=== PATIENT | male | born 1935 | race Caucasian/White ===

== ENCOUNTER 2022-07-26 15:43 | Inpatient (IN) | payer MEDICARE ==
[2022-07-26] MEDS ORDERED: levETIRAcetam 500 MG/5 ML VIAL ONE (15:54)
[2022-07-26 16:11] LABS: #Basophils 0.1 thou/uL (0.0-0.2); #Eosinphils 0.5 thou/uL (0.0-0.7); #Lymphocytes 2.4 thou/uL (1.20-3.40); #Neutrophils 7.5 thou/uL (1.40-6.50); %Basophils 0.5 % (0.0-1.0); %Eosinophils 4.3 % (0.0-10.0); %Lymphocytes 21.2 % (21.0-51.0); %Monocytes 8.7 % (0.0-10.0); %Neutrophils 65.2 % (42.0-75.0); Hemoglobin 14.2 g/dL (14.0-18.0); Mean Corpuscular HGB CONC 33.1 g/dL (32.0-36.0); Mean Corpuscular Hemoglobin 33.7 pg (27.0-31.0); Mean Platelet Volume 7.9 fL (7.4-10.4); Platelet Count 240 10x3/uL (130-400); Red Blood Cell (RBC) Count 4.23 mill/uL (4.70-6.10); White Blood Cell (WBC) Count 11.5 10x3/uL (4.8-10.8)
[2022-07-26 16:31] LABS: ALT (SGPT) 25 U/L (8-55); AST (SGOT) 21 U/L (5-34); Albumin 4.1 g/dL (3.4-4.8); Alkaline Phosphatase 89 U/L (40-110); Anion Gap 15 mmol/L (10-20); BUN (Urea Nitrogen) 52 mg/dL (8.4-25.7); Calc. Creatinine Clearance 0 mL/min (70-130); Calcium 8.9 mg/dL (7.8-10.44); Carbon Dioxide 24 mmol/L (23-31); Chloride 104 mmol/L (98-107); Estimated GFR 27; Globulin 3.3 g/dL (2.4-3.5); Glucose 103 mg/dL (83-110); Potassium 3.2 mmol/L (3.5-5.1); Protein, Total 7.4 g/dL (5.8-8.1); Sodium 140 mmol/L (136-145)
[2022-07-26 17:22] LABS: Bacteria/HPF 1+ HPF (None Seen); Bilirubin Negative (Negative); Blood, Urine 2+ (Negative); Clarity Clear (Clear); Glucose, Urine (Dipstick) Normal (Negative); Ketone, Urine Negative (Negative); Leukocyte 250 Leu/uL (Negative); Nitrite Negative (Negative); Protein, Urine (Dipstick) 20 mg/dL (Neg-Trace); Specific Gravity, Urine 1.016 (1.002-1.036); Squamous Epithelial 0-3 HPF (0-3); Urobilinogen Normal mg/dL (Less than 2); WBC/HPF 21-50 HPF (0-3)
[2022-07-26] MEDS ORDERED: Aspirin 325 MG TAB ONE (17:25)
[2022-07-26] MEDS ORDERED: Potassium Chloride 20 MEQ TAB ONE (17:29)
[2022-07-26] MEDS ORDERED: Acetaminophen 325 MG TAB PO PRN (17:58)
[2022-07-26] MEDS ORDERED: Ondansetron ODT 4 MG TAB PO PRN (17:58)
[2022-07-26] MEDS ORDERED: Ondansetron PF 4 MG/2 ML Vial IVP PRN (17:58)
[2022-07-26 19:59] VITALS: BMI 22.4
[2022-07-26] MEDS: Atorvastatin Calcium 40 MG TAB PO SCH (22:54)
[2022-07-27 05:00] LABS: #Basophils 0.1 thou/uL (0.0-0.2); #Eosinphils 0.6 thou/uL (0.0-0.7); #Lymphocytes 2.7 thou/uL (1.20-3.40); #Monocytes 0.8 thou/uL (0.11-0.59); #Neutrophils 4.3 thou/uL (1.40-6.50); %Basophils 0.7 % (0.0-1.0); %Eosinophils 7.6 % (0.0-10.0); %Lymphocytes 31.6 % (21.0-51.0); %Monocytes 9.6 % (0.0-10.0); %Neutrophils 50.6 % (42.0-75.0); Mean Corpuscular HGB CONC 32.7 g/dL (32.0-36.0); Mean Corpuscular Hemoglobin 33.2 pg (27.0-31.0); Mean Platelet Volume 7.9 fL (7.4-10.4); Platelet Count 189 10x3/uL (130-400); Red Blood Cell (RBC) Count 3.61 mill/uL (4.70-6.10); White Blood Cell (WBC) Count 8.4 10x3/uL (4.8-10.8)
[2022-07-27 05:37] LABS: Anion Gap 13 mmol/L (10-20); BUN (Urea Nitrogen) 54 mg/dL (8.4-25.7); Calc. Creatinine Clearance 27 mL/min (70-130); Calcium 8.4 mg/dL (7.8-10.44); Carbon Dioxide 22 mmol/L (23-31); Cardiac Risk 2.9 (Less than 4.5); Chloride 106 mmol/L (98-107); Cholesterol 78 mg/dl (< 200 Desired); Estimated GFR 27; Glucose 98 mg/dL (83-110); HDL Cholesterol 27 mg/dL (>60 Neg Risk); LDL Cholesterol, Calculated 38 mg/dL; Sodium 138 mmol/L (136-145); Triglycerides 63 mg/dL (Less than 150)
[2022-07-27] MEDS ORDERED: Polyethylene Glycol 3350 17 GM Packet PO PRN (09:54)
[2022-07-27] MEDS ORDERED: Bisacodyl 10 MG SUPP PR SCH (10:00)
[2022-07-27] MEDS ORDERED: Tamsulosin HCl 0.4 MG CAP PO SCH (11:00)
[2022-07-27] MEDS ORDERED: levETIRAcetam 500 MG TAB PO SCH ×2 (11:00→21:00)
[2022-07-27] MEDS ORDERED: Venlafaxine 75 MG TAB PO SCH (11:00)
[2022-07-27] MEDS: Enoxaparin Sodium 30 MG/0.3 ML SYRINGE SC SCH (11:15)
[2022-07-27] MEDS: Aspirin 81 mg Enteric Coated Tablet PO SCH (11:16)
[2022-07-27] MEDS ORDERED: Potassium Chloride 20 MEQ TAB PO SCH (12:15)
[2022-07-27] MEDS ORDERED: cefTRIAXone\\ROCEPHIN 1 GM in Sodium Chloride 0.9% 100 ML IVPB SCH (16:00)
[2022-07-27] MEDS: Atorvastatin Calcium 40 MG TAB PO SCH (21:15)
[2022-07-27] MEDS: levETIRAcetam 500 MG TAB PO SCH (21:16)
[2022-07-28 05:38] LABS: #Basophils 0.1 thou/uL (0.0-0.2); #Eosinphils 0.5 thou/uL (0.0-0.7); #Lymphocytes 2.1 thou/uL (1.20-3.40); #Monocytes 0.7 thou/uL (0.11-0.59); #Neutrophils 3.9 thou/uL (1.40-6.50); %Basophils 0.9 % (0.0-1.0); %Eosinophils 7.3 % (0.0-10.0); %Lymphocytes 29.4 % (21.0-51.0); %Monocytes 9.2 % (0.0-10.0); %Neutrophils 53.3 % (42.0-75.0); Hemoglobin 11.9 g/dL (14.0-18.0); Mean Corpuscular HGB CONC 32.6 g/dL (32.0-36.0); Mean Corpuscular Hemoglobin 33.5 pg (27.0-31.0); Mean Platelet Volume 7.9 fL (7.4-10.4); Platelet Count 174 10x3/uL (130-400); RBC Distribution Width 10.9 % (11.5-14.5); Red Blood Cell (RBC) Count 3.57 mill/uL (4.70-6.10); White Blood Cell (WBC) Count 7.3 10x3/uL (4.8-10.8)
[2022-07-28 05:53] LABS: Anion Gap 12 mmol/L (10-20); BUN (Urea Nitrogen) 51 mg/dL (8.4-25.7); Calc. Creatinine Clearance 32 mL/min (70-130); Calcium 8.4 mg/dL (7.8-10.44); Carbon Dioxide 24 mmol/L (23-31); Chloride 107 mmol/L (98-107); Estimated GFR 33; Glucose 96 mg/dL (83-110); Potassium 3.6 mmol/L (3.5-5.1); Sodium 139 mmol/L (136-145)
[2022-07-28] MEDS: Enoxaparin Sodium 30 MG/0.3 ML SYRINGE SC SCH (08:59)
[2022-07-28] MEDS ORDERED: Losartan 25 MG TAB PO SCH (09:00)
[2022-07-28] MEDS ORDERED: Venlafaxine 75 MG TAB PO SCH (09:00)
[2022-07-28] MEDS: Aspirin 81 mg Enteric Coated Tablet PO SCH (09:00)
[2022-07-28] MEDS ORDERED: Hydrochlorothiazide 25 MG TAB PO SCH (09:00)
[2022-07-28] MEDS ORDERED: Tamsulosin HCl 0.4 MG CAP PO SCH (09:00)
[2022-07-28] MEDS ORDERED: Amlodipine 10 MG TAB PO SCH (09:00)
[2022-07-28] MEDS ORDERED: Non-Formulary Item 1 EACH (Irbesartan/Hydrochlorothiazide [Irbesartan-Hctz 300-12.5 Mg Tb PO SCH (09:00)
[2022-07-28] MEDS: levETIRAcetam 500 MG TAB PO SCH (09:02)
[2022-07-28 11:51] VITALS: BP 131/59; TEMP 96.8
== END 2022-07-28 12:50 | disposition home or self-care (01) | DRG 100 ==
LOC: ERS 15:43 → ERHOLD 17:51 → NEURO 19:26 → OBSVTOIN 07-27 15:49
PROVIDERS: ADMIT Family Medicine; ATTEND Family Medicine
DX: G40.909 Epilepsy, unspecified, not intractable, without status epilepticus (principal); G93.41 Metabolic encephalopathy; N39.0 Urinary tract infection, site not specified; Z66 Do not resuscitate; Z20.822 Contact with and (suspected) exposure to COVID-19; E78.5 Hyperlipidemia, unspecified; N18.30 Chronic kidney disease, stage 3 unspecified; I12.9 Hypertensive chronic kidney disease with stage 1 through stage 4 chronic kidney disease, or unspecified chronic kidney disease; E87.6 Hypokalemia; F32.A Depression, unspecified; Z96.653 Presence of artificial knee joint, bilateral; Z85.038 Personal history of other malignant neoplasm of large intestine; Z90.49 Acquired absence of other specified parts of digestive tract; Z79.899 Other long term (current) drug therapy
CPT/HCPCS: 36415; 70450; 70551; 80048; 80053; 80061; 81003; 81015; 83036; 84443; 84484; 85025; 87086; 93005; 93306; 93880; 95712; 95819; 95957; 96372; G0378; J0696; J1650; J1953; J3490; U0003; U0005